=== PATIENT | male | born 1995 | race Caucasian/White ===

== ENCOUNTER 2017-11-04 09:24 | Observation (INO) | payer SELFPAY ==
--- NOTE | 2017-11-04 09:40 | ER Document Report ---
ED Medical Screen (RME) - General Chief Complaint: Rectal Pain Stated Complaint: RECTAL PAIN Time Seen by Provider: 11/04/17 09:40 Mode of Arrival: Ambulatory Information source: Patient Notes: 22 years old male presents today with 2 day history of rectal pain and a rectal polyp and hemorrhoids. No active bleeding. Seems to be in pain TRAVEL OUTSIDE OF THE [place] IN LAST 30 DAYS: No - Related Data Allergies/Adverse Reactions: No Known Allergies Allergy (Verified 11/04/17 09:25) Physical Exam - Vital signs Vitals: Temp Pulse Resp BP Pulse Ox 97.4 F 75 18 150/74 H 100 11/04/17 09:29 11/04/17 09:29 11/04/17 09:29 11/04/17 09:29 11/04/17 09:29 Course - Vital Signs Vital signs: Temp Pulse Resp BP Pulse Ox 97.4 F 75 18 150/74 H 100 11/04/17 09:29 11/04/17 09:29 11/04/17 09:29 11/04/17 09:29 11/04/17 09:29
--- NOTE | 2017-11-04 10:23 | ER Document Report ---
ED General - General Chief Complaint: Rectal Pain Stated Complaint: RECTAL PAIN Time Seen by Provider: 11/04/17 09:40 Mode of Arrival: Ambulatory TRAVEL OUTSIDE OF THE [place] IN LAST 30 DAYS: No - HPI Notes: Patient is a 22-year-old male who presents to the ED complaining of rectal pain 3 days. Patient states that he has had a hemorrhoid in the past, but has not had any associated bleeding and states that this pain is different than before. Patient states he does have trouble with bowel movements because of the pain. He is still able to eat and drink without any difficulties. He is urinating normally. No other significant past medical history. Denies any drug allergies. The pain does not radiate. He has been using Preparation H with no relief. Denies any headache, fever, URI, sore throat, chest pain, palpitations , syncope, cough, shortness of breath, wheeze, dyspnea, abdominal pain, nausea/ vomiting/diarrhea, urinary retention, dysuria, hematuria, back pain, loss of control of bowel or bladder, numbness/tingling, saddle anesthesia, or rash. - Related Data Allergies/Adverse Reactions: No Known Allergies Allergy (Verified 11/04/17 09:25) Past Medical History - General Information source: Patient - Social History Smoking Status: Current Every Day Smoker Frequency of alcohol use: Occasional Drug Abuse: Marijuana Family History: Reviewed & Not Pertinent Patient has suicidal ideation: No Patient has homicidal ideation: No Renal/ Medical History: Denies: Hx Peritoneal Dialysis Past Surgical History: Reports: Hx Abdominal Surgery - hernia, Hx Tonsillectomy Review of Systems - Review of Systems -: Yes All other systems reviewed and negative Physical Exam - Vital signs Vitals: Temp Pulse Resp BP Pulse Ox 97.4 F 75 18 150/74 H 100 11/04/17 09:29 11/04/17 09:29 11/04/17 09:29 11/04/17 09:29 11/04/17 09:29 - Notes Notes: PHYSICAL EXAMINATION: GENERAL: Well-appearing, well-nourished and in no acute distress. LUNGS: Breath sounds clear to auscultation bilaterally and equal. No wheezes rales or rhonchi. HEART: Regular rate and rhythm without murmurs, rubs, gallops. ABDOMEN: Soft, nontender, nondistended abdomen. No guarding, no rebound. No masses appreciated. Normal bowel sounds present. No CVA tenderness bilaterally. Rectal: + erythema, fluctuance, and swelling to the rt ayush-rectal area. + tenderness associated. No obvious hemorrhoid noted. No streaks or discharge. Musculoskeletal: FROM to passive/active. Strength 5+/5. Extremities: No cyanosis, clubbing, or edema b/l. Peripheral pulses 2+. Capillary refill less than 3 seconds. NEUROLOGICAL: Normal speech, normal gait. PSYCH: Normal mood, normal affect. SKIN: see above. Warm, Dry, normal turgor, no rashes or lesions noted. Course - Re-evaluation Re-evalutation: 11/04/17 10:[address] Cabello regarding possible ayush-rectal abscess. He will come evaluate. He drank gatorade at 0730 this morning and last solid food intake was yesterday afternoon. 11/04/17 10:59 Dr. Cabello will accept patient for surgery. Pt in agreement. Labs ordered per Dr. Cabello. - Vital Signs Vital signs: Temp Pulse Resp BP Pulse Ox 97.4 F 75 18 150/74 H 100 11/04/17 09:29 11/04/17 09:29 11/04/17 09:29 11/04/17 09:29 11/04/17 09:29 Discharge - Discharge Clinical Impression: Rectal pain Condition: Stable Disposition: ADMITTED INPATIENT Admitting Provider: Surgicalist - Dr. Cabello Unit Admitted: Surgical Floor
[2017-11-04] MEDS ORDERED: LIDOCAINE 2% URO-JET 5 ML KIT MM ONE (11:21)
[2017-11-04 11:36] LABS: ABSOLUTE BASOPHILS # (AUTO) 0.1 10^3/uL (0.0-0.2); ABSOLUTE EOSINOPHILS # (AUTO) 0.1 10^3/uL (0.0-0.6); ABSOLUTE LYMPHOCYTES (AUTO) 2.7 10^3/uL (0.5-4.7); ABSOLUTE MONOCYTES (AUTO) 1.3 10^3/uL (0.1-1.4); ABSOLUTE NEUT (AUTO) 8.6 10^3/uL (1.7-8.2); BASOPHILS % (AUTO) 0.5 % (0-2); EOSINOPHILS % (AUTO) 0.8 % (0-6); HEMATOCRIT 49.8 % (37.9-51.0); HEMOGLOBIN 17.4 g/dL (13.5-17.0); LYMPHOCYTES % (AUTO) 20.9 % (13-45); MEAN CORPUSCULAR HEMOGLOBIN 30.4 pg (27.0-33.4); MEAN CORPUSCULAR HGB CONC 34.9 g/dL (32.0-36.0); MEAN CORPUSCULAR VOLUME 87 fl (80-97); MONOCYTES % (AUTO) 9.8 % (3-13); PLATELET COUNT 230 10^3/uL (150-450); RED BLOOD COUNT 5.73 10^6/uL (4.35-5.55); RED CELL DISTRIBUTION WIDTH 13.7 % (11.5-14.0); TOTAL CELLS COUNTED % (AUTO) 100 %; WHITE BLOOD COUNT 12.7 10^3/uL (4.0-10.5)
[2017-11-04 11:52] LABS: ALANINE AMINOTRANSFERASE 19 U/L (21-72); ALKALINE PHOSPHATASE 71 U/L (38-126); ANION GAP 13 (5-19); ASPARTATE AMINO TRANSFERASE 28 U/L (17-59); BILIRUBIN,DIRECT 0.5 mg/dL (0.0-0.4); BILIRUBIN,TOTAL 1.3 mg/dL (0.2-1.3); BLOOD UREA NITROGEN 23 mg/dL (7-20); CALCIUM 10.4 mg/dL (8.4-10.2); CARBON DIOXIDE 23 mmol/L (22-30); CHLORIDE 105 mmol/L (98-107); GLUCOSE 93 mg/dL (75-110); POTASSIUM 3.8 mmol/L (3.6-5.0); SODIUM 140.6 mmol/L (137-145)
[2017-11-04] MEDS ORDERED: NORMAL SALINE 1000 ML 1,000 ML IV PRN (12:43)
[2017-11-04] MEDS ORDERED: BUPIVACAINE HCL 0.5 % INJ/PF 30 ML SDV ONE (12:45)
[2017-11-04] MEDS ORDERED: PHENYLEPHRINE HCL 1 EACH SUPP.RECT PR ONE (12:45)
[2017-11-04] MEDS ORDERED: LIDOCAINE 0.5%/EPINEPHRINE INJ 50 ML VIAL ONE (12:46)
[2017-11-04] MEDS ORDERED: LIDOCAINE 2% JELLY 30 ML TUBE ONE (12:46)
--- NOTE | 2017-11-04 12:54 | PDOC H&P ---
History of Present Illness Admission Date/PCP: 11/04/17 11:20 Patient complains of: Perianal pain with lump History of Present Illness: CARSON LOVE is a 22 year old male presenting with 3 day history of painful lump at his right perianal region. No drainage. No blood per rectum. Pain with bowel movement. No fever. Patient notes that the pain is excruciating. No prior history of perianal surgeries. Past Medical History Medical History: None Past Surgical History Past Surgical History: Reports: Tonsillectomy, Other - Bilateral inguinal hernia repairs Social History Smoking Status: Current Every Day Smoker Frequency of Alcohol Use: Occasional Drugs: Marijuana Family History Family History: Reviewed & Not Pertinent Parental Family History Reviewed: No Children Family History Reviewed: No Sibling(s) Family History Reviewed.: No Medication/Allergy Allergies/Adverse Reactions: No Known Allergies Allergy (Verified 11/04/17 09:25) Physical Exam Vital Signs: Temp Pulse Resp BP Pulse Ox 97.4 F 75 18 150/74 H 100 11/04/17 09:29 11/04/17 09:29 11/04/17 09:29 11/04/17 09:29 11/04/17 09:29 General appearance: PRESENT: mild distress Eye exam: PRESENT: conjunctiva pink Neck exam: PRESENT: other - Supple with no masses and no tenderness Respiratory exam: PRESENT: clear to auscultation deya Cardiovascular exam: PRESENT: RRR GI/Abdominal exam: PRESENT: other - Soft, nondistended, nontender to palpation. Rectal exam: PRESENT: other - Patient has exquisite tenderness to palpation at the right perianal region with a palpable lump in this region with hint of erythema. Unable to do digital rectal exam due to the patient's exquisite tenderness. Neurological exam: PRESENT: alert, awake Psychiatric exam: PRESENT: agitated, anxious Assessment & Plan - Diagnosis (1) Anal or rectal pain Is this a current diagnosis for this admission?: Yes Plan: Appearance is atypical for perianal abscess and atypical for thrombosed external hemorrhoid. With his marked tenderness in this area and a slight erythema along with leukocytosis, most likely perianal abscess. With his excruciating pain I feel that the best course of action is an exam under anesthesia. If he indeed has a perianal abscess I will plan incision and drainage. If he does not have a perianal abscess I will plan excision of his thrombosed external hemorrhoid of present, possible hemorrhoidectomy if thrombosed external hemorrhoid is not present and his swelling represents internal hemorrhoidal swelling. As stated before the appearance is a bit atypical. I have had a long discussion with the patient concerning the risks and benefits of the surgery including risk of fistula formation, bleeding, infection, persistence of pain, and recurrence. Patient understands and agrees to proceed.
[2017-11-04] MEDS ORDERED: ONDANSETRON HCL INJ/PF 4 MG/2 ML SDV ONE (13:02)
[2017-11-04] MEDS ORDERED: EPHEDRINE SULFATE INJ 50 MG/1 ML AMPULE ONE (13:02)
[2017-11-04] MEDS ORDERED: MIDAZOLAM 2 MG/2 ML INJ ONE (13:02)
[2017-11-04] MEDS ORDERED: FENTANYL CITRATE INJ/PF 100 MCG/2 ML AMPUL ONE (13:02)
[2017-11-04] MEDS ORDERED: PROPOFOL INJ 200 MG/20 ML VIAL IV ONE (13:03)
[2017-11-04] MEDS ORDERED: BUPIVACAINE HCL/DEX-WATER/PF 15 MG/2 ML AMPULE ONE (13:28)
--- NOTE | 2017-11-04 14:12 | Operative Report ---
Operative Report DATE OF SURGERY: 11/04/17 PREOPERATIVE DIAGNOSIS: Perianal pain POSTOPERATIVE DIAGNOSIS: Perianal abscess OPERATION: Exam under anesthesia, incision and drainage of perianal abscess SURGEON: COLLEEN DANIELLE ANESTHESIA: Spinal TISSUE REMOVED OR ALTERED: Pus sent for Gram stain and culture COMPLICATIONS: None ESTIMATED BLOOD LOSS: Minimal INTRAOPERATIVE FINDINGS: Approximately 3 x 3 cm right perianal abscess PROCEDURE: Informed consent was obtained. Patient was brought to the operating room and placed on the operating table where spinal anesthesia was produced. Patient was placed in a prone position and his buttocks taped apart. Exam under anesthesia was performed it demonstrated a fluctuant area at the right perianal region. Using a 18-gauge needle this region was aspirated yielding pus. Incision was made overlying this region entering an abscess cavity measuring about 3 x 3 cm in size. It was completely evacuated. The wound edges that was bleeding was electrocauterized. The cavity was then irrigated. I could not see a fistulous opening in the anal canal. Hemostasis appeared to be good. Malecot drain was placed into the abscess cavity and it was sutured in place with a chromic suture. Patient tolerated procedure well with no apparent complications and was taken to the recovery area in stable condition.
[2017-11-04] MEDS ORDERED: FENTANYL CITRATE INJ/PF 100 MCG/2 ML AMPUL IV PRN ×3 (14:19)
[2017-11-04] MEDS ORDERED: MEPERIDINE HCL/PF INJ 25 MG/1 ML DISP.SYRIN IV PRN (14:19)
[2017-11-04] MEDS ORDERED: DIPHENHYDRAMINE HCL 50 MG/ML VIAL IV PRN (14:19)
[2017-11-04] MEDS ORDERED: MORPHINE SULFATE 10 MG/ML INJ IV PRN (14:19)
[2017-11-04] MEDS ORDERED: PROMETHAZINE HCL INJ 25 MG/1 ML VIAL IV PRN ×2 (14:19)
[2017-11-04] MEDS ORDERED: OXYCODONE-ACETAMINOPHEN 5-325 MG TABLET PO PRN ×2 (14:19)
[2017-11-04] MEDS: OXYCODONE-ACETAMINOPHEN 5-325 MG TABLET PO PRN (20:42)
--- NOTE | 2017-11-04 22:32 | PDOC PROGRESS REPORT ---
Subjective Progress Note for:: 11/04/17 Subjective:: Feels better. Reason For Visit: PERIANAL ABSCESS Physical Exam Vital Signs: Temp Pulse Resp BP Pulse Ox 98.3 F 45 L 18 134/79 H 100 11/04/17 21:20 11/04/17 21:20 11/04/17 21:20 11/04/17 21:20 11/04/17 21:20 Intake & Output 11/03/17 11/04/17 11/05/17 06:59 06:59 06:59 Intake Total 1100 Output Total 5 Balance 1095 Rectal exam: PRESENT: other - Perianal wound looks good with drain intact with no swelling and no surrounding erythema Assessment & Plan - Diagnosis (1) Anal or rectal pain Is this a current diagnosis for this admission?: Yes (2) Perianal abscess Is this a current diagnosis for this admission?: Yes Plan: Status post incision and drainage. Patient looks very good. Patient wishes to stay in the hospital overnight which is reasonable we will give him couple doses of antibiotics tonight no antibiotics are required when he is discharged. He will follow-up in [facility] on Wednesday for drain removal.
[2017-11-04 23:30] LABS: URINE AMPHETAMINES SCREEN NEGATIVE; URINE BARBITURATES SCREEN NEGATIVE; URINE COCAINE SCREEN NEGATIVE; URINE METHADONE SCREEN NEGATIVE; URINE PHENCYCLIDINE SCREEN NEGATIVE
[2017-11-04 23:33] LABS: URINE BENZODIAZEPINES SCREEN UNCONFIRMED POSITIVE; URINE MARIJUANA (THC) SCREEN UNCONFIRMED POSITIVE
[2017-11-05] MEDS: CEFAZOLIN 1 GM/D5W RTU 1 GM/50 ML RTUPB IV SCH ×3 (00:06→11:35)
[2017-11-05] MEDS: OXYCODONE-ACETAMINOPHEN 5-325 MG TABLET PO PRN ×2 (06:29→12:30)
[2017-11-05 12:11] VITALS: BP 132/78
--- NOTE | 2017-11-05 13:07 | PDOC PROGRESS REPORT ---
Subjective Progress Note for:: 11/05/17 Subjective:: no c/o Reason For Visit: PERIANAL ABSCESS Physical Exam Vital Signs: Temp Pulse Resp BP Pulse Ox 98.1 F 55 L 18 132/78 H 98 11/05/17 10:54 11/05/17 10:54 11/05/17 10:54 11/05/17 10:54 11/05/17 10:54 Intake & Output 11/04/17 11/05/17 11/06/17 06:59 06:59 06:59 Intake Total 1150 100 Output Total 655 Balance 495 100 Weight 75.1 kg General appearance: PRESENT: no acute distress Rectal exam: PRESENT: other - right perirectal abscess site clean, no cellulitism drain in place Results Laboratory Results: 11/04/17 13:54 Perirectal Gram Stain - Final Assessment & Plan - Diagnosis (1) Perianal abscess Is this a current diagnosis for this admission?: Yes - Plan Summary Plan Summary: A/ POD#1 after I&D of perirectal abscess VSS< AF PE unremarkable, drain sutured into abscess cavity P/ home today shower only Sitz bath 3 times a day Augmentin 875 mg po TID Follow up with surgery office: see KIRT Lau for drain removal Tylenol/Aleve over the counter as needed for pain Miralax 1-2 cups per day to prevent constipation, hold for very soft/liquid stools
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
== END 2017-11-05 14:38 | disposition home or self-care (01) ==
LOC: ER 09:24 → EH 11:20 → INTOOBSV 11:20 → 4N 16:55
PROVIDERS: ADMIT Surgery; ATTEND Surgery
PROC: 0D9QXZX Drainage of Anus, External Approach, Diagnostic (ICD-10-PCS; principal; 2017-11-04 13:00)
DX: K61.0 Anal abscess (principal); D72.829 Elevated white blood cell count, unspecified; F17.200 Nicotine dependence, unspecified, uncomplicated; F12.10 Cannabis abuse, uncomplicated
CPT/HCPCS: 99284; 36415; 87070; 85025; 87075; 87077; 80053; 87186; 80307; 46050; G0378 ×3; C1729; J2250; J0690 ×2; J3490 ×3; J3010; J2405; J2704; 87205; 902